=== PATIENT | male | born 1980 | race Caucasian/White ===

== ENCOUNTER → 2023-03-29 16:45 | Outpatient (REF) | payer SELFPAY | LOC: RAD 16:45 | PROVIDERS: ATTENDING PHYSICIAN Nurse Practitioner Family | DX: E78.5 Hyperlipidemia, unspecified (principal) | CPT/HCPCS: 75571 ==

== ENCOUNTER → 2023-04-07 08:06 | Outpatient (REF) | payer OTHER, SELFPAY | LOC: RCS 08:06 | PROVIDERS: ATTENDING PHYSICIAN Nurse Practitioner Family | DX: R94.31 Abnormal electrocardiogram [ECG] [EKG] (principal) | CPT/HCPCS: 93306 ==